=== PATIENT | female | born 1965 | race Caucasian/White ===

== ENCOUNTER 2022-07-21 19:09 | Emergency (ER) | payer OTHER, BC, SELFPAY ==
[2022-07-21 19:17] VITALS: BP 199/101; PULSE 83; RESP 18; TEMP 36.7; O2SAT 95; BMI 31.4
--- NOTE | 2022-07-21 19:17 | ED_ITS ---
HPI - General Adult General: Chief complaint: Headache Stated complaint: headache, high BP Time Seen by Provider: 07/21/22 19:11 History of Present Illness: Ms. Montesinos is a 57-year-old lady with history of hypertension, hyperlipidemia, esophageal spasms, anxiety presenting to the [facility] department due to severe headache. She notes a headache that lasted a relatively short period of time 4 days ago however it was severe right frontal stabbing and associated nausea vomiting. She had been feeling well the past few days however she reports sudden onset of severe pain again today while bringing a animal in from outside. Since that time intensity has been severe and unrelenting. She has had nausea and vomiting. This is the worst headache of her life. Denies other neurologic symptoms or signs of infection. No other specific changes in health, exacerbating, or alleviating factors identified. Onset (ago): hour(s) Location: head Radiation: non-radiation Severity: severe Quality: stabbing and sharp Pain Consistency: constant Relieving factors: none Exacerbating factors: none Associated symptoms: Reports headache(s), nausea and vomiting; Deny chest pain, confusion, dyspnea or fevers/chills Review of Systems General: Reports: 10 or more systems reviewed and unremarkable except in HPI and below Card: Denies: chest pain Resp: Denies: dyspnea GI: Reports: nausea and vomiting Neuro: Reports: headache(s); Denies: confusion PFS ED PFSH: Medical History (Updated 07/29/22 @ 00:03 by PAU Salinas) HTN (hypertension) Surgical History (Updated 07/21/22 @ 21:55 by Renaldo Quinones MD) No significant past surgical history Physical Exam Const: COMMON NORMALS: patient oriented x3 and alert GENERAL APPEARANCE: cooperative and well developed HENMT: COMMON NORMALS: normocephalic and atraumatic HEAD & SCALP: normocephalic and atraumatic THROAT: posterior oropharynx normal Eye: COMMON NORMALS: conjunctivae normal CONJUNCTIVA: Yes conjunctivae normal SCLERA: sclerae normal OTHER: IOP: OS?14 OD?11 No evidence of abnormal fluorescein uptake or evidence of ocular pathology as cause of patient's symptoms. Neck/C-Spine: COMMON NORMALS: supple and no meningeal signs GENERAL: Yes trachea midline Resp: COMMON NORMALS: normal respiratory effort EFFORT & INSPECTION: Yes able to speak in complete sentences Cardio: COMMON NORMALS: regular rate and regular rhythm RATE: regular rate RHYTHM: regular rhythm GI: COMMON NORMALS: Soft to palpation PALPATION: Yes Soft to palpation and No Tenderness to palpation present (GI) PERCUSSION: normal to percussion Extremity: GENERAL: Yes normal exam except as noted and No edema Neuro: COMMON NORMALS: patient oriented x3, CN's II-XII intact bilaterally, moves all extremities, no focal motor deficits and no sensory deficits noted SENSORIUM/ORIENTATION: Yes alert and No Orientation impaired MENINGEAL SIGNS: Yes no meningeal signs Psych: COMMON NORMALS: mental status grossly normal and Normal thought process present THOUGHT PROCESS: Normal thought process present Course Vital Signs: Vital signs: Vital Signs Temperature 98.1 F 07/21/22 19:17 Pulse Rate 83 07/21/22 19:17 Respiratory Rate 18 07/21/22 19:17 Blood Pressure 142/86 07/21/22 21:30 Pulse Oximetry 95 07/21/22 21:30 Oxygen Delivery Me thod 07/21/22 19:17 [facility] - General Adult Medical Decision Making 57-year-old lady presenting with hyper pressure and headache. Exam as above. EKG notable for sinus rhythm, left axis deviation, normal intervals, nonspecific ST segment abnormalities, no STEMI. Labs with no significant hematologic or metabolic abnormalities to explain symptoms. Rapid viral panel was negative. Initially treated with medication with only very modest improvement at which point determined that imaging is appropriate. Imaging negative for acute intracranial vascular pathology. With repeat medications patient had near complete resolution of headache. Most likely etiology of headache is unclear. The results of ED evaluation were discussed with the patient including prescriptions and/or symptomatic cares (if applicable) including appropriate and responsible use, followup plan, and return precautions. The patient verbalized understanding and felt safe for discharge. Medical Records I reviewed the patient's medical records. Lab Data I reviewed the patient's lab results. 07/21/22 19:31 07/21/22 19:31 Radiology Impressions Head/Neck CTA 07/21/22 19:29 IMPRESSION: No acute vascular abnormality. IMPRESSION: No stenosis or occlusion. REFERENCES: NASCET CRITERIA. The degree of stenosis in the cervical segment of the internal carotid artery is based on NASCET criteria. Normal is no stenosis. Mild is less than 50% stenosis. Moderate is 50-69% stenosis. Severe is 70% to 99% stenosis. Total occlusion is no detectable patent lumen. Laboratory Results WBC 6.8 10^3/uL (4.0-10.0) 07/21/22 19: RBC 4.54 10^6/uL (4.1-5.3) 07/21/22 19: Hgb 14.3 g/dL (11.5-15.3) 07/21/22 19: Hct 42.2 % (37.0-47.0) 07/21/22 19: MCV 93.0 fl (81-99) 07/21/22: MCH 31.5 pg (28.0-34.0) 07/21/22: MCHC 33.9 g/dL (30.0-36.0) 07/21/22: RDW 11.9 % (12.1-15.1) L 07/21/22 19: Plt Count 250 10^3/cmm (130-400) 07/21/22 19: MPV 9.8 fL (7.4-10.4) 07/21/22 19: Neut % (Auto) 65.8 % 07/21/22 19: Lymph % (Auto) 20.3 % 07/21/22 19: [place] % (Auto) 6.7 % 07/21/22 19: Eos % (Auto) 5.6 % 07/21/22: Baso % (Auto) 1.3 % 07/21/22 19: Neut # (Auto) 4.44 10^3/uL (1.8-7.7) 07/21/22 19: Lymph # (Auto) 1.4 10^3/uL (0.8-4.8) 07/21/22 19: [place] # (Auto) 0.5 10^3/uL (0.2-0.9) 07/21/22 19: Eos # (Auto) 0.4 10^3/uL (0.0-0.8) 07/21/22 19: Baso # (Auto) 0.1 10^3/uL (0.0-0.1) 07/21/22: Nucleated RBC % (auto) 0 % 07/21/22 19: Nucleated RBCs # 0.0 /100WBC 07/21/22 19:31 Sodium 137 mmol/L (136-145) 07/21/22 19: Potassium 4.1 mmol/L (3.5-5.1) 07/21/22 19: Chloride 101 mmol/L (98-107) 07/21/22 19: Carbon Dioxide 23 mmol/L (22-29) 07/21/22 19: Anion Gap 17.1 (5-19) 07/21/22 19: BUN 15 mg/dL (6-20) 07/21/22 19: Creatinine 0.6 mg/dL (0.5-0.9) 07/21/22 19: GFR Calculation 102.7 mL/min (90-130) 07/21/22 19: Glucose 271 mg/dL (65-115) H 07/21/22 19: Calculated Osmolality 294 mOsm/kg (285-295) 07/21/22 19: Calcium 9.3 mg/dL (8.5-10.5) 07/21/22 19: Total Bilirubin 0.5 mg/dL (0.15-1.2) 07/21/22 19: AST 15 U/L (0-32) 07/21/22 19: ALT 18 U/L (0-33) 07/21/22 19: Alkaline Phosphatase 135 U/L (35-105) H 07/21/22 19: Troponin T Baseline 7 ng/L (0-10) 07/21/22 19: Troponin T 120 Minute 6.00 ng/L (0-10) 07/21/22 21:25 Delta Troponin T -1.0 ABS# (0-10) L 07/21/22 21:25 C-Reactive Protein 3.0 mg/L (0.0-4.9) 07/21/22 19: NT-Pro-B Natriuret Pep 110 pg/mL (0-125) 07/21/22 19: Total Protein 7.2 g/dL (6.6-8.7) 07/21/22 19: Albumin 4.8 g/dL (3.5-5.2) 07/21/22 19:31 Globulin 2.4 g/dL (1.3-4.6) 07/21/22 19:31 Influenza Type A Ag negative (Negative) 07/21/22 15:49 Influenza Type B Ag negative (Negative) 07/21/22 15:49 SARS-CoV-2 Ag (Rapid) negative (Negative) 07/21/22 15:49 Discharge Plan Discharge Patient Disposition: Home Clinical Impression: Headache, HTN (hypertension) Condition: Stable Prescriptions: New hydralazine 25 mg tablet 25 mg PO TID PRN (Reason: hypertension) Qty: 30 0RF Rx Instructions: systolic BP >160 or diastolic BP >110 Reglan 10 mg tablet 10 mg PO Q6H PRN (Reason: headache) Qty: 30 0RF Discharge Orders: Discharge ED (Routine); Ordered 07/21/22 Ordered By: Renaldo Quinones Discharge Diet: Usual diet Discharge Activity: Resume usual activity Patient Instructions: Acute Headache (ED), Hypertension and Diabetes (ED) Activity Restrictions/Additional Instructions: Thank you for visiting the emergency department. You were seen and evaluated for headache and high blood pressure. The exact cause of your symptoms is unclear though does not appear to need hospitalization at this time. I will prescribe hydralazine as needed for high blood pressure as discussed. Please also follow-up with your primary care provider for adjustment of medication. Please keep a blood pressure log daily to show your primary care p yuki. I will also prescribe Reglan for headaches. You may use [id number] medications such as acetaminophen and ibuprofen for pain however please do not exceed the daily recommended dosage as listed on the packaging and please keep in mind that many namebrand medications contain the same active ingredients. Please avoid these medications if previously instructed to do so by another physician due to other underlying medical condition. Return to the emergency department for fevers, neck pain, any new neurologic symptoms, uncontrolled headache, or anything else that you are concerned about and feel needs emergency department evaluation. Coding Level of Care Code ED Infrastructure Tech for Louie Hudson
--- NOTE | 2022-07-21 19:29 | ECG_ITS ---
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 Measurements Intervals [place] Rate: 81 P: 36 MN: 187 QRS: -8 QRSD: 88 T: 28 QT: 395 QTc: 459 Interpretive Statements SINUS RHYTHM LOW QRS VOLTAGE IN PRECORDIAL LEADS [QRS DEFLECTION < 1.0 mV IN CHEST LEADS] MODERATE VOLTAGE CRITERIA FOR LVH, CONSIDER NORMAL VARIANT [MEETS CRITERIA IN ONE OF: R(aVL), S(V1), R(V5), R(V5/V6)+S(V1)] INFERIOR MYOCARDIAL INFARCTION , PROBABLY OLD [40+ ms Q WAVE AND/OR ST/T ABNORMALITY IN II/aVF] No previous ECG available for comparison Electronically Signed On 07-22-2022 1:52:38 PHOTOGRAPHIC ARTIST by Shannan Mota M.D. [id number]
--- NOTE | 2022-07-21 19:29 | CTR_ITS ---
PROCEDURE INFORMATION: Exam: CTA Head With Contrast, Arteriography Exam date and time: 07/21/2022 8:42 PM Age: 57 years old Clinical indication: Pain; Headache; Additional info: Severe R frontal headache TECHNIQUE: Imaging protocol: Computed tomographic angiography of the head with contrast. Exam focused on the arteries. 3D rendering (Not supervised by radiologist): MIP and/or 3D reconstructed images were created by the technologist. Radiation optimization: All CT scans at this facility use at least one of these dose optimization techniques: automated exposure control; mA and/or kV adjustment per patient size (includes targeted exams where dose is matched to clinical indication); or iterative reconstruction. Contrast material: OMNIPAQUE 350; Contrast volume: 95 ml; Contrast route: INTRAVENOUS (IV); Other protocol: This patient has received 0 known CTs and 0 known cardiac nuclear medicine studies in the 12 months prior to the current study. COMPARISON: No relevant prior studies available. RADIATION DOSE METRICS: Total DLP (mGy-cm): 1133.62 FINDINGS: ANTERIOR CIRCULATION: Right internal carotid artery: Intracranial segment is patent with no significant stenosis. No aneurysm. Right middle cerebral artery: No occlusion or significant stenosis. No aneurysm. Right anterior cerebral artery: No occlusion or significant stenosis. No aneurysm. Left internal carotid artery: Intracranial segment is patent with no significant stenosis. No aneurysm. Left middle cerebral artery: No occlusion or significant stenosis. No aneurysm. Left anterior cerebral artery: No occlusion or significant stenosis. No aneurysm. POSTERIOR CIRCULATION: Right vertebral artery: The right vertebral artery becomes hypoplastic as it enters the foramen magnum up to its confluence at the basilar. No occlusion or significant stenosis. No aneurysm. Left vertebral artery: No occlusion or significant stenosis. No aneurysm. Basilar artery: No occlusion or significant stenosis. No aneurysm. Right posterior cerebral artery: No occlusion or significant stenosis. No aneurysm. Left posterior cerebral artery: No occlusion or significant stenosis. No aneurysm. Brain: No definite mass, mass effect, or midline shift. Cerebral ventricles: No ventriculomegaly. Paranasal sinuses: Mucosal thickening in the ethmoid and maxillary sinuses. Bones/joints: Unremarkable. No acute fracture. Soft tissues: Unremarkable. PROCEDURE INFORMATION: Exam: CTA Neck With Contrast Exam date and time: 07/21/2022 8:42 PM Age: 57 years old Clinical indication: Pain; Headache; Additional info: Severe R frontal headache TECHNIQUE: Imaging protocol: Computed tomographic angiography of the neck with contrast. 3D rendering (Not supervised by radiologist): MIP and/or 3D reconstructed images were created by the technologist. Radiation optimization: All CT scans at this facility use at least one of these dose optimization techniques: automated exposure control; mA and/or kV adjustment per patient size (includes targeted exams where dose is matched to clinical indication); or iterative reconstruction. Contrast material: OMNIPAQUE 350; Contrast volume: 95 ml; Contrast route: INTRAVENOUS (IV); Other protocol: This patient has received 0 known CTs and 0 known cardiac nuclear medicine studies in the 12 months prior to the current study. COMPARISON: No relevant prior studies available. RADIATION DOSE METRICS: Total DLP (mGy-cm): 1133.62 FINDINGS: Right common carotid artery: No stenosis. No dissection or occlusion. Right internal carotid artery: No stenosis of the extracranial segment. No dissection or occlusion. Right external carotid artery: No occlusion or stenosis of the origin. Left common carotid artery: No stenosis. No dissection or occlusion. Left internal carotid artery: No stenosis of the extracranial segment. No dissection or occlusion. Left external carotid artery: No occlusion or stenosis of the origin. Right vertebral artery: No stenosis. No dissection or occlusion. Left vertebral artery: No stenosis. No dissection or occlusion. Soft tissues: Normal. No significant soft tissue swelling. Bones/joints: No acute fracture. CT/CT angio headneck* [id number] IMPRESSION: No acute vascular abnormality. IMPRESSION: No stenosis or occlusion. REFERENCES: NASCET CRITERIA. The degree of stenosis in the cervical segment of the internal carotid artery is based on NASCET criteria. Normal is no stenosis. Mild is less than 50% stenosis. Moderate is 50-69% stenosis. Severe is 70% to 99% stenosis. Total occlusion is no detectable patent lumen.
[2022-07-21] MEDS: metoclopramide 5 mg/mL SDV 2 mL 10 MG IVP (19:45)
[2022-07-21 19:46] LABS: Basophils # 0.1 10^3/uL (0.0-0.1); Basophils % 1.3 %; Eosinophils # 0.4 10^3/uL (0.0-0.8); Eosinophils % 5.6 %; Hematocrit 42.2 % (37.0-47.0); Hemoglobin 14.3 g/dL (11.5-15.3); Lymphocytes # 1.4 10^3/uL (0.8-4.8); Lymphocytes % 20.3 %; Mean Corpuscular HGB Conc 33.9 g/dL (30.0-36.0); Mean Corpuscular Hemoglobin 31.5 pg (28.0-34.0); Mean Platelet Volume 9.8 fL (7.4-10.4); Monocytes # 0.5 10^3/uL (0.2-0.9); Monocytes % 6.7 %; Neutrophils # 4.44 10^3/uL (1.8-7.7); Neutrophils % 65.8 %; Nucleated Red Blood Cells % 0 %; Platelet Count 250 10^3/cmm (130-400); Red Blood Count 4.54 10^6/uL (4.1-5.3); Red Cell Distribution Width 11.9 % (12.1-15.1); White Blood Count 6.8 10^3/uL (4.0-10.0)
[2022-07-21] MEDS: diphenhydrAMINE 50 mg/mL SDV 1mL 25 MG IVP (19:46)
[2022-07-21] MEDS: sodium chloride 0.9% 1,000 ML 999 ML IV (19:46)
[2022-07-21 20:06] LABS: Troponin(5th) Baseline 7 ng/L (0-10)
[2022-07-21 20:14] LABS: Alanine Aminotransferase 18 U/L (0-33); Albumin Level 4.8 g/dL (3.5-5.2); Alkaline Phosphatase 135 U/L (35-105); Anion Gap 17.1 (5-19); Aspartate Amino Transferase 15 U/L (0-32); Blood Urea Nitrogen 15 mg/dL (6-20); Calcium 9.3 mg/dL (8.5-10.5); Carbon Dioxide 23 mmol/L (22-29); Chloride 101 mmol/L (98-107); Globulin 2.4 g/dL (1.3-4.6); Glomerular Filtration Rate 102.7 mL/min (90-130); Glucose 271 mg/dL (65-115); NT Pro B Type Natriuretic Pept 110 pg/mL (0-125); Osmolality Calculated 294 mOsm/kg (285-295); Potassium 4.1 mmol/L (3.5-5.1); Sodium 137 mmol/L (136-145); Total Bilirubin 0.5 mg/dL (0.15-1.2); Total Protein 7.2 g/dL (6.6-8.7)
[2022-07-21 20:29] LABS: Influenza A by IFA negative (Negative); Influenza B by IFA negative (Negative); SARS Covid-2 Antigen negative (Negative)
[2022-07-21] MEDS: iohexol 350 mg/mL 500 mL Btl (per mL) IV (20:45)
--- NOTE | 2022-07-21 21:29 | ECG_ITS ---
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 Measurements Intervals [place] Rate: 73 P: 56 [place]: 203 QRS: -3 QRSD: 88 T: 28 QT: 435 QTc: 480 Interpretive Statements SINUS RHYTHM LOW QRS VOLTAGE IN PRECORDIAL LEADS [QRS DEFLECTION < 1.0 mV IN CHEST LEADS] POSSIBLE RIGHT VENTRICULAR CONDUCTION DELAY [RSR (QR) IN V1/V2] MINIMAL VOLTAGE CRITERIA FOR LVH, CONSIDER NORMAL VARIANT [MEETS CRITERIA IN ONE OF: R(aVL), S(V1), R(V5), R(V5/V6)+S(V1)] Compared to ECG 07/21/2022 19:32:08 Myocardial infarct finding no longer present Electronically Signed On 07-22-2022 1:57:22 SENIOR LEAD DEVELOPER by Shannan Mota M.D. [id number]
[2022-07-21 21:30] VITALS: BP 142/86; O2SAT 95
[2022-07-21] MEDS: acetaminophen 1,000 MG/100 ML PIGGYBACK 400 MG IV (21:38)
[2022-07-21] MEDS: tetracaine 0.5% Op Soln 4 mL Btl 1 DROP EYE-BOTH (22:13)
[2022-07-21] MEDS: fluorescein 1 mg Strip EYE-RIGHT (22:14)
== END 2022-07-21 22:21 | disposition home or self-care (01) ==
PROVIDERS: Emergency Provider Emergency Medicine
DX: R51.9 Headache, unspecified (principal); I10 Essential (primary) hypertension; Z20.822 Contact with and (suspected) exposure to COVID-19
CPT/HCPCS: 70496; 70498; 80053; 83880; 84484; 85025; 86140; 87426; 87804; 93005; 96365; 96367; 96375; 99285; J0131; J1200; J2765; J3475; J7030; Q9967